=== PATIENT | female | born 1980 | race Caucasian/White ===

== ENCOUNTER 2023-12-28 14:52 | Emergency (ER) | payer OTHER, SELFPAY ==
[2023-12-28 15:05] VITALS: BP 136/88; PULSE 90; RESP 20; TEMP 37.1; O2SAT 100
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
== END 2023-12-28 15:47 | disposition home or self-care (01) ==
PROVIDERS: Emergency Provider Nurse Practitioner
DX: F41.9 Anxiety disorder, unspecified (principal); S46.912A Strain of unspecified muscle, fascia and tendon at shoulder and upper arm level, left arm, initial encounter; X58.XXXA Exposure to other specified factors, initial encounter; I34.1 Nonrheumatic mitral (valve) prolapse
CPT/HCPCS: 99213; G0463